=== PATIENT | female | born 1980 | race Caucasian/White ===

== ENCOUNTER 2016-10-15 15:23 | Emergency (ER) | payer MEDICAID ==
[2016-05-17 14:53] VITALS: BMI 28.9
[~2016-10-15 15:23] MED LIST: MUCINEX600 MG PO; OMNICEF300 MG PO; PREDNISONE10 MG PO; PROAIR HFA8.5 GM INH; PROTONIX40 MG PO
[2016-10-15 18:26] LABS: BASOPHILS 0.5 % (0.0-2.0); HEMATOCRIT 37.4 % (36.0-48.0); HEMOGLOBIN 12.5 g/dL (12-16); IMMATURE GRANULOCYTES 0.4 % (0-5); LYMPHOCYTES 29.1 % (15-50); MCH 28.3 pg (26.0-34.0); MCHC 33.4 g/dL (31.0-37.0); MCV 84.8 fL (80.0-100.0); MEAN PLATELET VOLUME 9.5 fL (7.4-10.4); MONOCYTES 8.2 % (2-11); NEUTROPHILS 45.8 % (40-80); RBC 4.41 10x6/uL (4.00-5.40); RDW 13.5 % (11.5-14.5); WBC 10.7 10x3/uL (4.8-10.8)
[2016-10-15 18:40] LABS: PLATELET COUNT 340 10x3/uL (130-400)
[2016-10-15 18:41] LABS: ALBUMIN 3.8 g/dL (3.4-5.0); ALKALINE PHOSPHATASE 60 U/L (46-116); ALT (SGPT) 26 U/L (10-68); BILIRUBIN - TOTAL 0.22 mg/dL (0.2-1.3); CALC OSMOLALITY 278 mosm/kg (275-300); CARBON DIOXIDE 28.5 mmol/L (21.0-32.0); CHLORIDE - SERUM 102 mmol/L (98-107); CREATININE - SERUM 0.7 mg/dL (0.6-1.3); PROTEIN - SERUM 7.8 g/dL (6.4-8.2); SODIUM 140 mmol/L (136-145); UREA NITROGEN 15 mg/dL (7-18); eGFR NON AFRICAN AMERICAN > 90 mL/min (90-120)
[2016-10-15 18:51] LABS: GLUCOSE 72 mg/dL (74-106)
== END 2016-10-15 19:48 | disposition home or self-care (01) ==
LOC: D.ER 15:23
PROVIDERS: Physician Assistant Medical
DX: J45.901 Unspecified asthma with (acute) exacerbation (principal)

== ENCOUNTER 2016-10-21 08:26 | Emergency (ER) | payer MEDICAID ==
[2016-05-17 14:53] VITALS: BMI 28.9
== END 2016-10-21 10:08 | disposition home or self-care (01) ==
LOC: D.ER 08:26
DX: J45.909 Unspecified asthma, uncomplicated (principal)

== ENCOUNTER → 2016-11-13 13:03 | Outpatient (CLI) | payer MEDICAID ==
[2016-05-17 14:53] VITALS: BMI 28.9
[~2016-11-13 13:03] MED LIST changes: +IBUPROFEN400 MG PO; +METHADONE10 MG/5 ML PO; +METHADONE5 MG; +VENTOLIN HFA18 GM INH
== END | disposition home or self-care (01) ==
LOC: D.RAD 13:00
DX: R13.19 Other dysphagia (principal)

== ENCOUNTER 2016-11-14 20:30 | Inpatient (IN) | payer MEDICAID ==
[~2016-11-14] VITALS: Ht 157.5 cm; Wt 74.4 kg
[~2016-11-14 20:30] MED LIST changes: -IBUPROFEN400 MG PO; -METHADONE10 MG/5 ML PO; -METHADONE5 MG; -VENTOLIN HFA18 GM INH
[2016-11-14] MEDS ORDERED: METHADONE5 MG (20:42)
[2016-11-14] MEDS ORDERED: IBUPROFEN400 MG PO (20:43)
[2016-11-14] MEDS ORDERED: VENTOLIN HFA18 GM INH (20:46)
--- NOTE | 2016-11-14 20:54 | NUR ---
RECEIVED PATIENT TO ROOM. ALERT AND ORIENTED. NO SIGNS OF DISTRESS NOTED. ORIENTED TO ROOM AND USE OF CALL LIGHT. DENIES NEEDS AT THIS TIME. BED LOW. CALL LIGHT IN REACH
[2016-11-14] MEDS ORDERED: METHADONE10 MG/5 ML PO (21:03)
[2016-11-14 21:46] VITALS: BP 127/72
--- NOTE | 2016-11-14 22:21 | NUR ---
20G IV PLACED TO RIGHT ON FIRST ATTEMPT. PATIENT TOLERATED WITHOUT COMPLAINTS. IVF STARTED ORDERED. DENIES ANY FURTHER NEEDS AT THIS TIME.
[2016-11-15] VITALS (12 sets, daily range): BP systolic 100–135; BP diastolic 59–82; Ht 157.5 cm; Wt 74.4 kg
[2016-11-15 06:20] LABS: BASOPHILS 0.4 % (0.0-2.0); EOSINOPHILS 11.9 % (0-7); HEMATOCRIT 36.3 % (36.0-48.0); HEMOGLOBIN 11.9 g/dL (12-16); LYMPHOCYTES 28.7 % (15-50); MCH 28.1 pg (26.0-34.0); MCHC 32.8 g/dL (31.0-37.0); MCV 85.8 fL (80.0-100.0); MEAN PLATELET VOLUME 9.9 fL (7.4-10.4); MONOCYTES 8.5 % (2-11); NEUTROPHILS 50.5 % (40-80); PLATELET COUNT 342 10x3/uL (130-400); RBC 4.23 10x6/uL (4.00-5.40); WBC 6.8 10x3/uL (4.8-10.8)
[2016-11-15 06:39] LABS: ALBUMIN 3.5 g/dL (3.4-5.0); ALKALINE PHOSPHATASE 62 U/L (46-116); ALT (SGPT) 23 U/L (10-68); CALC OSMOLALITY 278 mosm/kg (275-300); CALCIUM 8.8 mg/dL (8.5-10.1); CARBON DIOXIDE 32.8 mmol/L (21.0-32.0); CHLORIDE - SERUM 103 mmol/L (98-107); CREATININE - SERUM 0.8 mg/dL (0.6-1.3); GLUCOSE 78 mg/dL (74-106); POTASSIUM - SERUM 3.8 mmol/L (3.5-5.1); PROTEIN - SERUM 7.2 g/dL (6.4-8.2); SODIUM 140 mmol/L (136-145); UREA NITROGEN 15 mg/dL (7-18); eGFR NON AFRICAN AMERICAN 85 mL/min (90-120)
--- NOTE | 2016-11-15 07:53 | NUR ---
PATIENT IS AWAKE, ALERT AND ORIENTED X'S 4. PATIENT IS REQUESTING IV TYLENOL FOR A HEADACHE, PATIENT RATED A 3/10. PATIENT DENIES FURTHER NEEDS AT THIS TIME, BED IN LOWEST POSITION, CALL LIGHT IN REACH. BED RAILS UP X'S 2.
[2016-11-15 11:24] LABS: HEMOGLOBIN A1C 5.8 % (4.8-6.0)
[2016-11-15] MEDS ORDERED: FLOVENT DISKU100 MCG INH (11:45)
--- NOTE | 2016-11-15 15:03 | NUR ---
Patient Name: SHELTON SKINNER Admission Status: Elective Accout number: [id number] Admission Date: 11-14-2016 : 1980 Admission Diagnosis: Attending: NICK Current LOS: 1 Anticipated DC Date: 11-18-2016 Planned Disposition: Home Primary Insurance: [place] Discharge Planning Comments: CM MET WITH PATIENT REGARDING D/C NEEDS AND PLANS. PATIENT STATED HER SPOUSE DILIA WEEKS WILL DRIVE HER HOME AT DISCHARGE. PATIENT STATED THERE ARE 3 FLIGHTS OF STAIRS WITH RAILS TO ENTER HOME AND NO STAIRS INSIDE. PATIENT STATED SHE IS INDEPENDENT WITH HER CARE AND HAS OXYGEN AT HOME (2L HS). OXYGEN IS SUPPLIED BY [facility]. PATIENTS PCP IS DR. SEGURA WITH [facility] AND USES [facility]. PATIENT HAD HOME HEALTH BACK IN JUNE 2016 WITH [facility] BUT DOES NOT THINK SHE WILL NEED IT AT DISCHARGE. CM WILL CONTINUE TO FOLLOW PATIENT WITH D/C NEEDS AND PLANS. PCP DR. SEGURA [employer] [place] [id number] DILIA WEEKS (SPOUSE) [phone] Project Structural Engineer: Barbara Rees Is the patient Alert and Oriented? Yes 0 * How many steps to enter\exit or inside your home? 3 FLIGHTS 0 * PCP DR. SEGURA (Actual Experience) 0 * Pharmacy [facility] 0 * Preadmission Environment Home with Family 0 * ADLs Independent 0 * Equipment Oxygen 0 * Other Equipment OXYGEN HS 2L [facility] 0 * List name and contact numbers for known caregivers / representatives who currently or will assist patient after discharge: DILIA WEEKS (SPOUSE) [phone] 0 * Community resources currently utilized None 0 * Additional services required to return to the preadmission environment? Yes 0 * Can the patient safely return to the preadmission environment? Yes 0 * Has this patient been hospitalized within the prior 30 days at any hospital? No 0 Grand Total: 0
--- NOTE | 2016-11-15 21:00 | NUR ---
PATIENT RESTING IN BED WITH EYES CLOSED. NO VISIBLE SIGNS OF DISTRESS. BED IN LOWEST POSITION AND CALL LIGHT WITHIN REACH.
[2016-11-16] VITALS: BP 112/72
[2016-11-16 04:00] VITALS: BP 117/76
[2016-11-16 04:55] LABS: BASOPHILS 0.7 % (0-2); EOSINOPHILS 10.6 % (0-7); HEMATOCRIT 34.5 % (36.0-48.0); HEMOGLOBIN 11.6 g/dL (12-16); IMMATURE GRANULOCYTES 0.3 % (0-5); LYMPHOCYTES 32.4 % (15-50); MCH 28.4 pg (26.0-34.0); MCHC 33.6 g/dL (31.0-37.0); MCV 84.4 fL (80.0-100.0); MEAN PLATELET VOLUME 9.5 fL (7.4-10.4); MONOCYTES 10.2 % (2-11); NEUTROPHILS 45.8 % (40-80); PLATELET COUNT 308 10x3/uL (130-400); RBC 4.09 10x6/uL (4.00-5.40); RDW 13.7 % (11.5-14.5); WBC 5.9 10x3/uL (4.8-10.8)
[2016-11-16 05:26] LABS: ALBUMIN 3.1 g/dL (3.4-5.0); ALKALINE PHOSPHATASE 56 U/L (46-116); ALT (SGPT) 19 U/L (10-68); CALCIUM 8.5 mg/dL (8.5-10.1); CARBON DIOXIDE 29.6 mmol/L (21.0-32.0); CHLORIDE - SERUM 103 mmol/L (98-107); CREATININE - SERUM 0.7 mg/dL (0.6-1.3); POTASSIUM - SERUM 3.4 mmol/L (3.5-5.1); PROTEIN - SERUM 6.7 g/dL (6.4-8.2); SODIUM 139 mmol/L (136-145); eGFR NON AFRICAN AMERICAN > 90 mL/min (90-120)
[2016-11-16 05:28] LABS: CALC OSMOLALITY 274 mosm/kg (275-300); GLUCOSE 65 mg/dL (74-106); UREA NITROGEN 9 mg/dL (7-18)
--- NOTE | 2016-11-16 07:00 | NUR ---
PT REC'D FROM [facility]. RESTING IN BED WITH EYES CLOSED. RT AT BEDSIDE ADMIMINISTERING BREATHING TX. AAOX4. EASILY AROUSED. CON'T SPO2 CURRENTLY READING 98% ON RA. REGULAR HEART RATE AND RHYTHM. BILAT EXPIRATORY WHEEZES TO LOWER LOBES. BOWEL SOUNDS ACTIVE X4 QUADRANTS. NO COMPLAINTS OF PAIN. PIV TO R HAND FREE OF REDDNESS AND SWELLING. NO COMPLAINTS OF PAIN. BED LOW, CALL LIGHT IN REACH, DENIES NEEDS. CPOC.
[2016-11-16 08:17] VITALS: BP 117/81
--- NOTE | 2016-11-16 09:35 | NUR ---
MORNING MEDS PASSED. 2ND BAG OF K RIDERS STARTED. C/O 10/04 ANDINO PAIN. EXPLAINED TO PT THAT IT WAS NO QUITE TIME FOR PAIN MEDICATION YET. UNDERSTANDS AND STATES THIS IS OKAY. BED LOW, CALL LIGHT IN REACH, DENIES NEEDS. CPOC.
--- NOTE | 2016-11-16 09:40 | OP ---
PATIENT NAME: SHELTON SKINNER MEDICAL RECORD: [id number] :[birth year] LOCATION:[facility] ADMISSION DATE:11/15/16 SURGEON: JA GARAY DO DATE OF OPERATION: 11/15/2016 PROCEDURE: EGD. SCOPE: Olympus video gastroscope. MEDICATIONS: Propofol 150 mg IV per anesthesia. INDICATIONS FOR PROCEDURE: Dysphagia and a failed swallow test. FINDINGS: Informed consent was given. The patient was made comfortable with the above medication. After reaching an adequate level of sedation by slow IV push, the patient was placed on her left side. The endoscope was then advanced under direct visualization through the mouth. The hypopharynx appeared normal. The scope was advanced behind the epiglottis into the cricopharyngeus into the esophagus where the proximal and middle thirds of the esophagus appeared normal. In the distal third and down to the GE junction, there was some LA class C, reflux-induced esophagitis, which was [id number] in nature. The endoscope was advanced beyond this into the stomach. There were no strictures or other abnormalities within the esophagus encountered which would account for the patient's dysphagia. There was a brief examination of the stomach, which appeared within normal. At this time, the patient became apneic and her oxygen saturation decreased. For safety reasons, the procedure was terminated. At this point, the endoscope was withdrawn from the patient. The patient was resuscitated quickly and easily without difficulty. I discussed the findings with her and discussed performing a CT of her head and neck and considering a neurologic consultation regarding her ongoing symptoms. She was in agreement with the plan. IMPRESSION: 1. LA class C reflux-induced esophagitis. 2. Dysphagia. PLAN AND RECOMMENDATIONS: 1. CT scan of the head and neck. 2. Consider neurologic evaluation. TRANSINT:[id number] Voice Confirmation ID: [id number] DOCUMENT ID: [id number] JA GARAY DO at 0940 CC: [id number] DICTATION DATE: 11/15/16 1426 LUMBER TAILER: 11/15/161941 ADM IN [facility] [address] [place] [address]
[2016-11-16 11:45] VITALS: BP 105/69
--- NOTE | 2016-11-16 12:15 | NUR ---
PRN OFIMEV ADMINISTERED PER PT C/O 10/04 ANDINO PAIN. WILL REASSESS. BED LOW, CALL LIGHT IN REACH, DENIES NEEDS. CPOC.
--- NOTE | 2016-11-16 13:39 | NUR ---
PT UNHOOKED FROM IV PER REQUEST TO WALK WITH SON.
[2016-11-16 15:35] VITALS: BP 108/71
--- NOTE | 2016-11-16 17:59 | NUR ---
PATIENT RESTING IN THE BED. IV SITE PATENT IN PATIENT'S RIGHT HAND WITHOUT ANY S/S OF INFECTION NOTED. SCD'S IN PLACE TO PATIENT'S BILATERAL LOWER EXTREMITIES. PATIENT DENIES NEEDS AT PRESENT TIME. CALL LIGHT IN PATIENT'S REACH. WILL MONITOR.
--- NOTE | 2016-11-16 19:33 | NUR ---
PATIENT RESTING IN BED WITH SISTER AT BEDSIDE. HUNG A NEW IV BAG. PATIENT DENIES OTHER NEEDS AT THIS TIME. BED IN LOWEST POSITION AND CALL LIGHT WITHIN REACH.
[2016-11-16 20:00] VITALS: BP 131/81
[2016-11-17] VITALS: BP 120/80
[2016-11-17 04:00] VITALS: BP 122/84
[2016-11-17 04:35] LABS: BASOPHILS 0.5 % (0-2); EOSINOPHILS 10.1 % (0-7); HEMATOCRIT 35.2 % (36.0-48.0); HEMOGLOBIN 11.7 g/dL (12-16); IMMATURE GRANULOCYTES 0.2 % (0-5); LYMPHOCYTES 37.4 % (15-50); MCH 28.1 pg (26.0-34.0); MCHC 33.2 g/dL (31.0-37.0); MCV 84.6 fL (80.0-100.0); MEAN PLATELET VOLUME 9.1 fL (7.4-10.4); MONOCYTES 10.2 % (2-11); NEUTROPHILS 41.6 % (40-80); PLATELET COUNT 310 10x3/uL (130-400); RBC 4.16 10x6/uL (4.00-5.40); WBC 5.8 10x3/uL (4.8-10.8)
[2016-11-17 05:16] LABS: ALBUMIN 3.3 g/dL (3.4-5.0); ALKALINE PHOSPHATASE 56 U/L (46-116); ALT (SGPT) 19 U/L (10-68); BILIRUBIN - TOTAL 0.26 mg/dL (0.2-1.3); CALC OSMOLALITY 273 mosm/kg (275-300); CALCIUM 8.4 mg/dL (8.5-10.1); CARBON DIOXIDE 30.3 mmol/L (21.0-32.0); CHLORIDE - SERUM 101 mmol/L (98-107); CREATININE - SERUM 0.6 mg/dL (0.6-1.3); POTASSIUM - SERUM 3.5 mmol/L (3.5-5.1); PROTEIN - SERUM 6.9 g/dL (6.4-8.2); SODIUM 139 mmol/L (136-145); UREA NITROGEN 7 mg/dL (7-18); eGFR NON AFRICAN AMERICAN > 90 mL/min (90-120)
[2016-11-17 05:18] LABS: GLUCOSE 67 mg/dL (74-106)
--- NOTE | 2016-11-17 07:00 | NUR ---
PT REC'D FROM [facility]. RESTING IN BED. RT AT BEDSIDE ADMINISTERING BREATHING TX. AAOX4. CONTINUOUS SPO2 ON AND READING 93 ON RA. PIV TO R HAND FREE OF REDDNESS AND SWELLING. NO C/O PAIN. BED LOW, CALL LIGHT IN REACH, DENIES NEEDS. CPOC.
[2016-11-17 08:55] VITALS: BP 135/73
[2016-11-17 12:48] VITALS: BP 131/80
[2016-11-17 17:35] VITALS: BP 145/85
--- NOTE | 2016-11-17 17:45 | NUR ---
SPOKE WITH DR. RODRIGEZ. ORDERS REC'D TO OBTAIN CONSENTS FOR PEG TUBE PLACEMENT TOMORROW.
[2016-11-17 20:00] VITALS: BP 105/69
--- NOTE | 2016-11-17 21:00 | NUR ---
PATIENT RESTING IN BED WITH SON AT BEDSIDE. PATIENT C/O 11/04 PAIN. ADMINISTERED PAIN MEDICATION ORDERED. BED IN LOWEST POSITION AND CALL LIGHT WITHIN REACH. PATIENT DENIES OTHER NEEDS AT THIS TIME. ENCOURAGED PATIENT TO CALL IF SHE HAS FURTHER NEEDS.
[2016-11-18] VITALS (10 sets, daily range): BP systolic 110–135; BP diastolic 62–87
[2016-11-18 06:05] LABS: BASOPHILS 0.7 % (0-2); EOSINOPHILS 13.2 % (0-7); HEMATOCRIT 37.1 % (36.0-48.0); HEMOGLOBIN 12.1 g/dL (12-16); IMMATURE GRANULOCYTES 0.2 % (0-5); MCH 27.8 pg (26.0-34.0); MCHC 32.6 g/dL (31.0-37.0); MCV 85.3 fL (80.0-100.0); MEAN PLATELET VOLUME 9.5 fL (7.4-10.4); MONOCYTES 9.1 % (2-11); NEUTROPHILS 30.8 % (40-80); PLATELET COUNT 338 10x3/uL (130-400); RBC 4.35 10x6/uL (4.00-5.40); RDW 14.2 % (11.5-14.5); WBC 5.6 10x3/uL (4.8-10.8)
[2016-11-18 06:57] LABS: ALBUMIN 3.6 g/dL (3.4-5.0); ALKALINE PHOSPHATASE 57 U/L (46-116); ALT (SGPT) 22 U/L (10-68); BILIRUBIN - TOTAL 0.21 mg/dL (0.2-1.3); CALCIUM 8.7 mg/dL (8.5-10.1); CARBON DIOXIDE 29.8 mmol/L (21.0-32.0); CHLORIDE - SERUM 103 mmol/L (98-107); GLUCOSE 91 mg/dL (74-106); POTASSIUM - SERUM 3.3 mmol/L (3.5-5.1); PROTEIN - SERUM 7.4 g/dL (6.4-8.2); SODIUM 142 mmol/L (136-145); eGFR NON AFRICAN AMERICAN 85 mL/min (90-120)
[2016-11-18 07:00] LABS: CALC OSMOLALITY 281 mosm/kg (275-300); CREATININE - SERUM 0.8 mg/dL (0.6-1.3); UREA NITROGEN 9 mg/dL (7-18)
--- NOTE | 2016-11-18 07:59 | NUR ---
PT SEEN AND ASSESSED. COMPLAINTS OF HEADACHE-TYLENOL IV GIVEN. NPO FOR PEG TUBE PLACEMENT- CONSENTS SIGNED. OXYGEN AT 2L NC WITH SATS OF 99%. CALL LIGHT IN REACH
--- NOTE | 2016-11-18 11:04 | NUR ---
NUTRITION MONITORING & EVAL CHART REVIEWED. PT NPO. NOTE POSSIBLE PEG TUBE PLACEMENT TODAY. RECOMMEND JEVITY 1.2 TUBE FEEDS. BOLUS 1 CAN 5 TIMES PER DAY. 50 CC H2O FLUSH BEFORE AND AFTER EACH BOLUS. RD FOLLOWING
--- NOTE | 2016-11-18 11:40 | NUR ---
IV ACCESS-22 GAUGE INSERTED IN LEFT WRIST FOR ACCESS. SMITH CENTENO RN
[2016-11-18 12:26] LABS: HCG SERUM NEGATIVE (NEGATIVE)
--- NOTE | 2016-11-18 12:27 | NUR ---
UPPER AND LOWER DENTURES REMOVED IN HOLDING AREA, TAKEN TO PACU
--- NOTE | 2016-11-18 14:08 | NUR ---
RETURNED FROM GI LAB. PEG TUBE SITE CLEAN AND DRY WITH NO BLEEDING NOTED. NO DRESSING IN PLACE. OXYGEN IN PLACE AT 2L NC. NO COMPLAINTS AT PRESENT. CALL LIGHT IN REACH
--- NOTE | 2016-11-18 17:27 | NUR ---
CM REASSESSMENT NOTE: PATIENT HAS SIGNED THE JENNI FORM WITH [facility]. PATIENT WILL DISCHARGE TOMORROW.
--- NOTE | 2016-11-18 17:36 | NUR ---
PATIENT IS WANTING SOMETHING FOR PAIN. STATES PAIN IS 7/10. TALKED TO DR. CALLAHAN AND WAS TOLD TO ORDER 1MG DILAUDID Q6HRS PRN. PUT THE ORDER IN. ADMINISTERED PRESCRIBED. WILL REASSESS PAIN IN 20 MINS. PT DENIED FURTHER NEEDS. INSTURCTED TO CALL IF NEEDED ANYTHING. BED LOW, LOCKED CALL LIGHT IN REACH.
--- NOTE | 2016-11-18 19:20 | NUR ---
PATIENT REFUSED FEEDING TREATMENT AT THIS TIME. SHE STATED THAT SHE DOES NOT FEEL UP TO IT RIGHT NOW. I ENCOURAGED THAT PATIENT TO CALL WHEN SHE IS READY FOR HER TREATMENT AND TOLD HER THAT I WOULD CHECK IN ON HER AGAIN.
--- NOTE | 2016-11-18 23:53 | NUR ---
PATIENT CONTINUES TO REFUSE TUBE FEEDINGS.
[2016-11-19] VITALS: BP 96/60
[2016-11-19 04:00] VITALS: BP 110/68
[2016-11-19 06:04] LABS: BASOPHILS 0.2 % (0-2); EOSINOPHILS 0.1 % (0-7); HEMATOCRIT 34.9 % (36.0-48.0); HEMOGLOBIN 11.6 g/dL (12-16); IMMATURE GRANULOCYTES 0.3 % (0-5); LYMPHOCYTES 7.5 % (15-50); MCH 27.9 pg (26.0-34.0); MCHC 33.2 g/dL (31.0-37.0); MCV 83.9 fL (80.0-100.0); MEAN PLATELET VOLUME 9.6 fL (7.4-10.4); MONOCYTES 4.6 % (2-11); NEUTROPHILS 87.3 % (40-80); PLATELET COUNT 327 10x3/uL (130-400); RBC 4.16 10x6/uL (4.00-5.40); RDW 14.1 % (11.5-14.5)
[2016-11-19 06:06] LABS: WBC 11.6 10x3/uL (4.8-10.8)
[2016-11-19 06:47] LABS: ALBUMIN 3.3 g/dL (3.4-5.0); ALKALINE PHOSPHATASE 55 U/L (46-116); ALT (SGPT) 25 U/L (10-68); CALC OSMOLALITY 262 mosm/kg (275-300); CALCIUM 8.6 mg/dL (8.5-10.1); CARBON DIOXIDE 25.8 mmol/L (21.0-32.0); CHLORIDE - SERUM 96 mmol/L (98-107); CREATININE - SERUM 0.6 mg/dL (0.6-1.3); GLUCOSE 98 mg/dL (74-106); PROTEIN - SERUM 7.2 g/dL (6.4-8.2); SODIUM 133 mmol/L (136-145); UREA NITROGEN 5 mg/dL (7-18); eGFR NON AFRICAN AMERICAN > 90 mL/min (90-120)
--- NOTE | 2016-11-19 07:40 | NUR ---
SLEEPING AT THIS TIME. RESPIRATIONS EVEN AND NON LABORED. REMAINS NPO. CALL LIGHT IN REACH, WILL CONTINUE WITH PLAN OF CARE.
--- NOTE | 2016-11-19 08:15 | NUR ---
PT RESTING IN BED WITH EYES OPEN CALL LIGHT IN REACH WILL MONITER
[2016-11-19 09:03] VITALS: BP 119/86
[2016-11-19 12:16] VITALS: BP 107/88
--- NOTE | 2016-11-19 14:00 | NUR ---
PT SHOWED HOW TO DO HOME FEEDING PER PEG TUBE 1/2 CAN GIVEN PT TOLERATED WELL AND UNDERSTOOD PROCEDURE
[2016-11-19 15:53] VITALS: BP 132/93
--- NOTE | 2016-11-19 16:30 | NUR ---
PT DISCHARGED TO HOME [facility]IA [facility] CALLED TO [facility] DISCHARGE MEDS AND SUMMARY REVIEWED NO QUESTIONS
--- NOTE | 2016-11-19 16:47 | NUR ---
CM REASSESSMENT NOTE: PATIENT TO D/C HOME TODAY-FAMILY DRIVING HER. [facility] (JENNI SIGNED) PATIENT IS ON PEG FEEDINGS AND HOSPITAL SUPPLIED JEVITY 1.2 (10CANS) FOR DISCHARGE PER [facility] REQUEST. ([facility] ORDERING JEVITY 1.2). CM SPOKE WITH [facility] PATIENT REGARDING OXYGEN CONTINUOUS AND PORTABLE AND THEY COULD NOT SUPPLY IT DUE TO THE ABG REPORT. THEY STATED HER PCP COULD CONTACT THEM WITH MORE INFORMATION IF HER PCP THOUGHT BEST. PATIENT STATED SHE HAS BEEN TRYING FOR MONTHS TO GET O2 CONTINUOUS AND WILL SPEAK WITH HER PCP AGAIN.
--- NOTE | 2016-11-26 14:51 | OP ---
PATIENT NAME: SHELTON SKINNER MEDICAL RECORD: [id number] :78 LOCATION:[facility] ADMISSION DATE:11/15/16 SURGEON: SAUL RODRIGEZ MD DATE OF OPERATION: 11/18/2016 PREOPERATIVE DIAGNOSES: 1. Dysphagia. 2. Arnold Chiari malformation. 3. Diabetes mellitus. 4. Asthma. POSTOPERATIVE DIAGNOSES: 1. Dysphagia. 2. Arnold Chiari malformation. 3. Diabetes mellitus. 4. Asthma. PROCEDURE: PEG tube placement. SURGEON: Saul Rodrigez M.D. REPORT OF THE PROCEDURE: The patient's abdomen was prepped and draped in sterile fashion. An Olympus endoscope was advanced through the mouth and esophagus. We insufflated the gastric lumen. We could see an area on the antrum of the stomach to house our PEG tube. A total of 5 cc of 1% lidocaine was infused into the subcutaneous tissue. A skin incision was made with an 11 blade and then an Angiocath needle was inserted through the abdominal wall into the gastric lumen. A wire was advanced through this Angiocath and this wire was grasped with a lasso. This wire was then pulled through the mouth and esophagus and the PEG tube was affixed to the end of the wire. These were both pulled through the abdominal wall and into position at 5 cm at the skin. We readvanced the scope through the mouth and esophagus and we could see that the PEG tube was in good position and there was no sign of any bleeding intraluminally. At this point, the insufflation was removed. COMPLICATIONS: None. CONDITION: Stable. ANESTHESIA: TIVA. BLOOD LOSS: Minimal. TRANSINT:[id number] Voice Confirmation ID: [id number] DOCUMENT ID: [id number] SAUL RODRIGEZ MD at 1451 CC: SIERRA RASCON MD and BETSY ADAMS MD [id number] DICTATION DATE: 11/18/16 1300 ALUMINUM POURER: 11/18/16 1752 DIS IN 11/19/16 [facility] [address] [place] [address]
== END 2016-11-19 17:40 | disposition home health service (06) | DRG 81 ==
LOC: D.MS 20:30 → OBSVTIME 20:30 → D.MS 11-15 16:38
PROVIDERS: Internal Medicine Gastroenterology; ADMIT Family Medicine
PROC: 0DJ08ZZ Inspection of Upper Intestinal Tract, Via Natural or Artificial Opening Endoscopic (ICD-10-PCS; principal; 2016-11-15 13:30)
PROC: 0DH63UZ Insertion of Feeding Device into Stomach, Percutaneous Approach (ICD-10-PCS; 2016-11-18)
DX: G93.5 Compression of brain (principal); G95.0 Syringomyelia and syringobulbia; K21.0 Gastro-esophageal reflux disease with esophagitis; R13.13 Dysphagia, pharyngeal phase; E11.65 Type 2 diabetes mellitus with hyperglycemia; J45.909 Unspecified asthma, uncomplicated

== ENCOUNTER 2017-10-19 10:47 | Emergency (ER) | payer MEDICAID ==
[~2017-10-19 10:47] MED LIST changes: +FLOVENT DISKU100 MCG INH; +IBUPROFEN400 MG PO; +METHADONE10 MG/5 ML PO; +METHADONE5 MG; +VENTOLIN HFA18 GM INH
== END 2017-10-19 12:13 | disposition home or self-care (01) ==
LOC: D.ER 10:47
DX: R07.89 Other chest pain (principal); F17.200 Nicotine dependence, unspecified, uncomplicated